=== PATIENT | male | born 1940 | race Caucasian/White ===

== ENCOUNTER 2021-01-14 20:09 | Emergency (ER) | payer OTHER, MEDICARE, SELFPAY ==
[2021-01-14 20:10] VITALS: BP 153/85; PULSE 78; RESP 16; TEMP 36.8; O2SAT 98; BMI 35.5
[2021-01-14 20:14] VITALS: BP 153/85; PULSE 78; RESP 16; TEMP 36.8; O2SAT 98
--- NOTE | 2021-01-14 20:22 | EDS_ITS ---
HPI History of Present Illness Chief Complaint: Bite Narrative Narrative: 80-year-old male presenting with allergic reaction on the right forearm. Patient states he was stung by a nap while sitting on the front porch. He had his put vinegar on it and then it still itched so he put bacitracin on it. Patient states he ate dinner and then when he stood up he felt as if maybe his blood sugar was going low. Insulin lasted few seconds. He has no lip swelling, tongue swelling, difficulty breathing or swallowing. He has been otherwise well prior to this. No known allergies to gnats. [facility] Medical History (Updated 01/14/21 @ 20:30 by Marnie Davis) Atrial fibrillation Congestive heart failure (CHF) Diabetes Hypertension Home Medications Lantus U-100 Insulin 80 unit SUBCUT DAILY 01/03/16 [History Last Taken Unknown] Potassium Cloride Effervescent [Potassium Chl 25 Meq Eff (For Liquid)] 20 meq PO 01/03/16 [History Last Taken Unknown] Terbinafine HCl 01/03/16 [History Last Taken Unknown] aspirin [Adult Low Dose Aspirin EC] 81 mg PO DAILY 01/03/16 [History Last Taken Unknown] cholecalciferol (vitamin D3) [Vitamin D] 2,000 unit PO DAILY 01/03/16 [History Last Taken Unknown] flaxseed oil [Catarina-3 Flaxseed Oil] 1,000 mg PO DAILY 01/03/16 [History Last Taken Unknown] furosemide 40 mg PO DAILY 01/03/16 [History Last Taken Unknown] metformin 1,000 mg PO BIDCM 01/03/16 [History Last Taken Unknown] nitroglycerin 0.4 mg SUBLINGUAL Q5M PRN 01/03/16 [History Last Taken Unknown] [id number]-[id number]-epa-fish oil-D3 [Fish Oil + D3 Softgel] 1 cap PO DAILY 01/03/16 [History Last Taken Unknown] omeprazole 20 mg PO DAILY 01/03/16 [History Last Taken Unknown] tamsulosin 0.4 mg PO DAILY 01/03/16 [History Last Taken Unknown] warfarin [Coumadin ([facility]KC)] 7.5 mg PO DAILY 01/03/16 [History Last Taken Unknown] alogliptin 12.5 mg PO DAILY 01/14/21 [History Last Taken Unknown] carvedilol 12.5 mg PO BID 01/14/21 [History Last Taken Unknown] lisinopril 10 mg PO DAILY 01/14/21 [History Last Taken Unknown] magnesium 15 mg PO DAILY 01/14/21 [History Last Taken Unknown] ranolazine 500 mg PO BID 01/14/21 [History Last Taken Unknown] Allergy/AdvReac Type Severity Reaction Status Date / Time aspartame Allergy Other Verified 01/03/16 13:25 fenofibrate Allergy Other Verified 01/03/16 13:25 gemfibrozil Allergy Other Verified 01/03/16 13:25 naproxen Allergy Other Verified 01/03/16 13:25 rosuvastatin calcium Allergy Other Verified 01/03/16 13:25 [From Crestor] tramadol Allergy Other Verified 01/03/16 13:25 Surgical History (Updated 01/14/21 @ 20:30 by Marnie Davis) History of aortic valve replacement History of carotid endarterectomy Social History Smoking Status: Former smoker ROS ROS ED Constitutional Constitutional ED: Denies chills, fever(s) or subjective Eyes Eyes: Denies blurry vision or change in vision ENT ENT ED: Denies rhinorrhea or sore throat Cardiovascular Cardiovascular: Denies chest pain or palpitations Respiratory/Chest Respiratory/Chest: Denies cough or dyspnea Gastrointestinal Gastrointestinal: Denies abdominal pain, nausea or vomiting Genitourinary Genitourinary ED: Denies dysuria or hematuria Musculoskeletal Musculoskeletal: Denies arthralgias, myalgias or neck pain Integumentary Denies abscess or rash Neurologic Neurologic: Denies headache(s) or paresthesias Psychiatric Psychiatric: Denies anxiety or depression EXAM Physical Exam Const Vital Signs: 01/14/21 20:10 01/14/21 20:14 Temperature 98.2 F 98.2 F Temperature Source Oral Oral Pulse Rate 78 78 Respiratory Rate 16 16 Blood Pressure 153/85 H 153/85 H Blood Pressure Mean 107 107 Pulse Ox 98 98 Oxygen Delivery Method Room Air Room Air Positive well nourished General Appearance ED: NAD HEENT atraumatic; Negative for trauma Eyes PERRL and EOMs intact bilaterally Neck full ROM Neck Narrative: No lymphadenopathy. General: tenderness Resp normal respiratory effort and clear to auscultation bilaterally Cardio regular rhythm Rate: regular rate Extremity normal to inspection; Negative for full ROM General Extremety ED: Negative for tenderness Neuro oriented x3 Sensorium / Orientation: alert Psych mental status grossly normal and thought process normal Skin Skin Narrative: 2 cm circular wheal of erythema. No surrounding cellulitic change. Nontender to palpation. MDM MDM MDM Narrative Medical decision making narrative: Patient presenting with insect bite to the right forearm which he believes with a nap. He states he was able to eat supper and then after that he stood up and he felt mildly lightheaded for a second. I think but the rash on his right forearm. He does not have a diffuse fashion over his body that I found on exam. He has no stridor on examination. His tongue is not swollen. He has no difficulty tolerating his own secretions. No sublingual edema. No lymphadenopathy noted on examination. Blood sugar was checked because patient had concern for low blood sugar and his blood sugar was 149. I do not see any signs of anaphylaxis. Patient was offered Benadryl in the ED however he and his would rather take this when they get home he is able to make sure he gets home in bed before he takes the medication because it makes him drowsy. I do not believe he needs epinephrine, steroids at this time. Patient counseled that if he has new or worsening symptoms to return to the ED for repeat evaluation. Impression: 1. Localized allergic reaction right forearm Discharge Plan Triage Chief Complaint: Bite ED Provider: Yariel Prescott Dx/Rx/DC Orders Instructions: ED Insect Sting, Local Reaction Prescriptions: No Action furosemide 40 MG tablet 40 mg PO DAILY RF: 0 Lantus U-100 Insulin 100 UNIT/ML solution 80 unit subcut DAILY RF: 0 warfarin [Jantoven] 2.5 MG tablet 7.5 mg PO DAILY RF: 0 aspirin [Adult Low Dose Aspirin] 81 MG tablet,delayed release (DR/EC) 81 mg PO DAILY RF: 0 flaxseed oil [Catarina-3 Flaxseed Oil] 1,000 MG capsule 1,000 mg PO DAILY RF: 0 tamsulosin 0.4 MG capsule 0.4 mg PO DAILY RF: 0 metformin 1,000 MG tablet 1,000 mg PO BIDCM RF: 0 nitroglycerin 0.4 MG tablet 0.4 mg sublingual Q5M PRN (Reason: Chest Pain) RF: 0 omeprazole 20 MG capsule 20 mg PO DAILY RF: 0 cholecalciferol (vitamin D3) [Vitamin D3] 1,000 UNIT tablet 2,000 unit PO DAILY RF: 0 [id number]-epa-fish oil-D3 [Fish Oil-Vit D3] 1 EACH capsule 1 cap PO DAILY RF: 0 Potassium Cloride Effervescent [Potassium Chl 25 Meq Eff (For Liquid)] 25 MEQ Tablet.Eff 20 meq PO RF: 0 Terbinafine HCl RF: 0 magnesium 500 mg Tablet 15 mg PO DAILY RF: 0 carvedilol 12.5 mg tablet 12.5 mg PO BID RF: 0 lisinopril 10 mg tablet 10 mg PO DAILY RF: 0 ranolazine 500 mg Tablet Extended Release 12 Hr 500 mg PO BID RF: 0 alogliptin 12.5 mg Tablet 12.5 mg PO DAILY RF: 0 [facility] [facility] [Primary Care Provider] - Disposition Disposition: Home, Self Care
[2021-01-14 21:33] VITALS: RESP 16; O2SAT 98
[2021-01-15 10:15] LABS: Bedside Glucose 149 mg/dL (70-110)
== END 2021-01-14 21:34 | disposition home or self-care (01) ==
PROVIDERS: Emergency Provider Student in an Organized Health Care Education/Training Program
DX: T63.481A Toxic effect of venom of other arthropod, accidental (unintentional), initial encounter (principal); L25.8 Unspecified contact dermatitis due to other agents; I48.91 Unspecified atrial fibrillation; I11.0 Hypertensive heart disease with heart failure; I15.0 Renovascular hypertension; E11.9 Type 2 diabetes mellitus without complications; Z79.4 Long term (current) use of insulin; Z79.01 Long term (current) use of anticoagulants; Z79.899 Other long term (current) drug therapy; Z87.891 Personal history of nicotine dependence
CPT/HCPCS: 82962; 99284

== ENCOUNTER → 2021-03-04 | Outpatient (CLI) | payer MEDICARE, OTHER, SELFPAY ==
[2021-03-04 15:44] LABS: Microalbumin,Random Urine 7.3 mg/L (NO RANGE EST.); Microalbumin:Creatinine Ratio 32.8 mg/g CRE (<30 mg/g CRE)
== END | disposition home or self-care (01) ==
PROVIDERS: Referring Provider Nurse Practitioner; Visit Provider Nurse Practitioner
DX: E11.40 Type 2 diabetes mellitus with diabetic neuropathy, unspecified (principal); E11.65 Type 2 diabetes mellitus with hyperglycemia
CPT/HCPCS: 82043; 82570

== ENCOUNTER 2024-11-22 17:44 | Emergency (ER) | payer MEDICARE, SELFPAY ==
[2024-11-22 17:46] VITALS: BP 129/81; PULSE 75; RESP 18; TEMP 36.6; O2SAT 99; BMI 28.6
== END 2024-11-22 19:43 | disposition left against medical advice (07) ==
LOC: ED 19:49
DX: Z53.21 Procedure and treatment not carried out due to patient leaving prior to being seen by health care provider (principal)